=== PATIENT | female | born 1985 | race Two or more races ===

== ENCOUNTER → 2016-11-18 | Outpatient (CLI) | payer BC ==
[2016-04-24 12:15] VITALS: BP 104/53
--- NOTE | 2016-11-18 14:48 | US ---
HISTORY: 21 week IUP Study: OB ultrasound greater than 14 weeks Comparison: None Technique: Multiple grayscale and color flow Doppler images of the pelvis were obtained with focused evaluation of the fetus. Findings: A viable single intrauterine is identified with heart tones of 146 beats per minute. A breech presentation is observed with a anterior placenta. STEFFANIE was not calculated by the ultraso und technologist. A three-vessel cord is observed. No gross anatomical abnormalities. Value Estimated Gestational Age BPD 4.9 20 weeks 6 days HC 18.8 21 weeks 1 day AC 15.8 21 weeks 0 days FL 3.5 21 weeks 0 days IMPRESSION: A viable single intrauterine with an average ultrasound age of 20 weeks 6 days correspond to an estimated date of delivery of 03/31/2017. No anatomical abnormalities can be identified. Reported By:
== END ==
LOC: RAD 10:52
PROVIDERS: ATTEND Obstetrics & Gynecology Obstetrics
DX: Z34.82 Encounter for supervision of other normal pregnancy, second trimester (principal); Z3A.20 20 weeks gestation of pregnancy

== ENCOUNTER 2017-03-26 06:42 | Inpatient (IN) | payer BC ==
[2017-03-26] MEDS ORDERED: LR 1000 ML IV 1,000 ML IV ONE (06:56)
[2017-03-26] MEDS ORDERED: D5LR 1L W PITOCIN 10 UNITS/L 10 UNITS/1,000 ML BAG IV ONE (06:56)
[2017-03-26] MEDS ORDERED: D5 1/2 NS 1L W PITOCIN 20 UNITS/L 20 UNITS/1,000 ML BAG IV ONE (06:57)
[2017-03-26] MEDS ORDERED: PITOCIN ONE ×2 (06:57)
[2017-03-26] MEDS ORDERED: NUBAIN INJ 200 MG VIAL MULTIDOSE IVP PRN (06:59)
[2017-03-26] MEDS ORDERED: MORPHINE SULFATE INJ 2 MG INJ IVP PRN (06:59)
[2017-03-26] MEDS ORDERED: PHENERGAN INJ 25 MG IV PRN ×2 (06:59→15:03)
[2017-03-26] MEDS ORDERED: REGLAN INJ 10 MG VIAL IVP PRN (06:59)
[2017-03-26] MEDS ORDERED: D5LR 1L W PITOCIN 10 UNITS/L 10 UNITS/1,000 ML BAG IV PRN (06:59)
[2017-03-26] MEDS ORDERED: PITOCIN IVP ONE (06:59)
[2017-03-26] MEDS: D5 1/2 NS 1000 ML 1,000 ML IV SCH ×2 (07:00→15:02)
[2017-03-26 07:26] LABS: BASOPHILS % (AUTO) 0.2 % (0.2-1.0); EOSINOPHILS % (AUTO) 0.5 % (0.9-2.9); HEMATOCRIT 36.6 % (36.0-47.0); HEMOGLOBIN 12.6 g/dL (12.0-16.0); LYMPHOCYTES # (AUTO) 1.9 X10^3/uL (1.3-2.9); LYMPHOCYTES % (AUTO) 26.7 % (21.0-51.0); MEAN CORPUSCULAR HEMOGLOBIN 30.9 pg (27.0-34.0); MEAN CORPUSCULAR HGB CONC 34.5 g/dL (33.0-35.0); MEAN CORPUSCULAR VOLUME 89.6 fL (80.0-100.0); MEAN PLATELET VOLUME 8.4 fL (7.4-11.0); MONOCYTES # (AUTO) 0.5 x10^3/uL (0.3-0.8); MONOCYTES % (AUTO) 7.5 % (0.0-13.0); NEUTROPHILS # (AUTO) 4.5 x10^3/uL (2.2-4.8); NEUTROPHILS % (AUTO) 65.1 % (42.0-75.0); PLATELET COUNT 221 X10^3/uL (150.0-450.0); RED BLOOD COUNT 4.09 X10^6/uL (3.5-5.4); RED CELL DISTRIBUTION WIDTH 12.7 % (11.6-16.5)
[2017-03-26 07:33] LABS: BLOOD UREA NITROGEN 8 mg/dL (7-18); CALCIUM 9.1 mg/dL (8.5-10.1); CARBON DIOXIDE 20.2 mmol/L (21-32); CHLORIDE 102 mmol/L (98-107); CREATININE 0.62 mg/dL (0.55-1.02); SODIUM 135 mmol/L (136-145); eGFR BLACK RACES > 60 (>60); eGFR NON BLACK RACES > 60 (>60)
[2017-03-26 07:51] LABS: BILIRUBIN,URINE NEGATIVE (NEGATIVE); BLOOD/HEMOGLOBIN,URINE 1+ (NEGATIVE); GLUCOSE, URINE NEGATIVE (NEGATIVE); KETONES,URINE 1+ (NEGATIVE); LEUKOCYTE ESTERASE ,URINE 3+ (NEGATIVE); NITRITES,URINE NEGATIVE (NEGATIVE); PROTEIN,URINE 2+ (NEGATIVE); UROBILINOGEN,URINE NORMAL (NORMAL)
[2017-03-26 07:57] LABS: APPEARANCE,URINE SLIGHTLY HAZY (CLEAR); BACTERIA,URINE TRACE /HPF (NEGATIVE); COLOR,URINE YELLOW (YELLOW); SQUAMOUS EPITHELIAL CELL,UR MANY /HPF (NEGATIVE)
[2017-03-26 07:58] LABS: AMORPHOUS SEDIMENT,UR 1+ /HPF (NEGATIVE); MUCUS,URINE FEW /HPF (NEGATIVE)
[2017-03-26] MEDS ORDERED: MOTRIN TAB 800 MG PO ONE (14:56)
[2017-03-26] MEDS ORDERED: MILK OF MAGNESIA PO PRN (15:03)
[2017-03-26] MEDS ORDERED: MOTRIN TAB 800 MG PO PRN (15:03)
[2017-03-26] MEDS ORDERED: ADACEL TDaP IM ONE (15:03)
[2017-03-26] MEDS ORDERED: AMBIEN PO PRN (15:03)
[2017-03-26] MEDS ORDERED: DERMOPLAST SPRAY TOP PRN (15:03)
[2017-03-26] MEDS: MOTRIN TAB 800 MG PO PRN (15:17)
[2017-03-26] MEDS: D5 1/2 NS 1000 ML 1,000 ML with PITOCIN 20 UNITS IV SCH ×2 (16:15)
[2017-03-26] MEDS: NS 1000 ML 1,000 ML IV SCH (20:03)
[2017-03-26] MEDS: ZANTAC PO SCH (20:03)
[2017-03-27] MEDS: D5 1/2 NS 1000 ML 1,000 ML with PITOCIN 20 UNITS IV SCH ×2 (01:02)
[2017-03-27] MEDS: NS 1000 ML 1,000 ML IV SCH (06:04)
[2017-03-27] MEDS: MOTRIN TAB 800 MG PO PRN (07:05)
[2017-03-27] MEDS ORDERED: PRENATAL PLUS PO SCH (09:00)
[2017-03-27] MEDS: ZANTAC PO SCH ×2 (09:55→09:56)
[2017-03-27 16:37] VITALS: BP 102/58
== END 2017-03-27 17:05 | disposition home or self-care (01) | DRG 775 ==
LOC: LD 06:42 → MED/SURG 15:24
PROVIDERS: ADMIT Obstetrics & Gynecology Obstetrics; ATTEND Obstetrics & Gynecology Obstetrics
PROC: 10E0XZZ Delivery of Products of Conception, External Approach (ICD-10-PCS; principal; 2017-03-26)
PROC: 0HQ9XZZ Repair Perineum Skin, External Approach (ICD-10-PCS; 2017-03-26)
PROC: 10907ZC Drainage of Amniotic Fluid, Therapeutic from Products of Conception, Via Natural or Artificial Opening (ICD-10-PCS; 2017-03-26)
PROC: 3E033VJ Introduction of Other Hormone into Peripheral Vein, Percutaneous Approach (ICD-10-PCS; 2017-03-26)
PROC: 3E0234Z Introduction of Serum, Toxoid and Vaccine into Muscle, Percutaneous Approach (ICD-10-PCS; 2017-03-26)
DX: O70.0 First degree perineal laceration during delivery (principal); Z37.0 Single live birth; Z3A.39 39 weeks gestation of pregnancy; Z23 Encounter for immunization
CPT/HCPCS: 36415; 59409; 80048; 81001; 85014; 85018; 85025; 86592; 86850; 86900; 86901; A4216; A4222; S0197; J2590; J7042; J7120